=== PATIENT | male | born 1960 | race American Indian/Alaskan Native ===

== ENCOUNTER 2020-05-19 19:38 | Emergency (ER) | payer SELFPAY ==
[2020-05-19 20:26] LABS: Basophils % (Auto) 0.3 % (0.0-1.8); Eosinophils # (Auto) 0.1 K/mm3 (0.0-0.4); Eosinophils % (Auto) 2.8 % (0.0-4.3); Hematocrit 43.4 % (35.5-45.6); Hemoglobin 14.4 gm/dl (11.8-15.2); Lymphocytes # (Auto) 1.5 K/mm3 (1.2-5.4); Mean Corpuscular HGB Conc 33 % (32-34); Mean Corpuscular Volume 95 fl (84-94); Monocytes # (Auto) 0.3 K/mm3 (0.0-0.8); Monocytes % (Auto) 8.1 % (0.0-7.3); Platelet Count 221 K/mm3 (140-440); Red Blood Count 4.59 M/mm3 (3.65-5.03); Red Cell Distribution Width 13.8 % (13.2-15.2)
[2020-05-19 20:39] LABS: BUN/Creatinine Ratio 18; Blood Urea Nitrogen 24 mg/dL (9-20); Calcium 9.9 mg/dL (8.4-10.2); Hemolysis Index 27
[2020-05-19 21:37] LABS: Bilirubin,Urine NEG (Negative); Blood,Urine NEG (Negative); Color,Urine Colorless (Yellow); Mucus,Urine FEW /HPF; Protein,Urine <15 mg/dL mg/dL (Negative); Urobilinogen,Urine < 2.0 mg/dL (<2.0)
[2020-05-20] MEDS ORDERED: SODIUM CHLORIDE 0.9% 1000 ML 1,000 ML IV ONE ×2 (01:28)
--- NOTE | 2020-05-20 01:36 | Emergency Department Report ---
ED General Adult HPI - General Chief complaint: Hyperglycemia Stated complaint: BLOOD SUGAR HIGH Time Seen by Provider: 05/20/20 01:26 Source: patient, family Mode of arrival: Ambulatory Limitations: No Limitations - History of Present Illness Initial comments: cc: " I need my diabetes medicine." HPI: Mr. Sanchez is a 59-year-old male with history of diabetes mellitus, asthma, enlarged prostate, dyslipidemia who presents with muscle cramps polyuria for 2 months. He does not have a primary physician. He has not taken insulin in several years. He does not recall the name of his most recent diabetes medication. He denies any current discomfort. -: month(s) (2) Quality: aching Consistency: constant Improves with: none Worsens with: none - Related Data Previous Rx's Medication Instructions Recorded Last Taken Type AtorvaSTATin [Lipitor] 20 mg PO DAILY #30 tablet 06/09/16 Unknown Rx Insulin NPH/Regular [Novolin 70/30] 8 unit SQ BIDDIAB 30 Days ml 06/09/16 Unknown Rx Insulin Regular, Human [HumuLIN R] 1 units IV ACHS 30 Days units 06/09/16 Unknown Rx traMADoL [Ultram] 50 mg PO Q6HR PRN #20 tablet 06/26/16 Unknown Rx metFORMIN [Glucophage] 500 mg PO BID #60 tablet 05/20/20 Unknown Rx Allergies Allergy/AdvReac Type Severity Reaction Status Date / Time No Known Allergies Allergy Verified 06/26/16 09:02 ED Review of Systems ROS: Stated complaint: BLOOD SUGAR HIGH Other details as noted in HPI Comment: All other systems reviewed and negative Constitutional: denies: fever, malaise Respiratory: denies: cough, shortness of breath Cardiovascular: denies: chest pain Musculoskeletal: myalgia ED Past Medical Hx - Past Medical History Previous Medical History?: Yes Hx Diabetes: Yes (new onset) Hx Asthma: Yes Additional medical history: Constipation, Enlarged prostate. HIGH CHOLESTEROL - Surgical History Past Surgical History?: Yes Hx Appendectomy: Yes - Social History Smoking Status: Never Smoker Substance Use Type: None - Medications Home Medications: Home Medications Medication Instructions Recorded Confirmed Last Taken Type AtorvaSTATin [Lipitor] 20 mg PO DAILY #30 tablet 06/09/16 06/26/16 Unknown Rx Insulin NPH/Regular [Novolin 70/30] 8 unit SQ BIDDIAB 30 Days ml 06/09/16 06/26/16 Unknown Rx Insulin Regular, Human [HumuLIN R] 1 units IV ACHS 30 Days units 06/09/16 06/26/16 Unknown Rx traMADoL [Ultram] 50 mg PO Q6HR PRN #20 tablet 06/26/16 Unknown Rx metFORMIN [Glucophage] 500 mg PO BID #60 tablet 05/20/20 Unknown Rx ED Physical Exam - General Limitations: No Limitations General appearance: alert, in no apparent distress - Head Head exam: Present: atraumatic, normocephalic - Eye Eye exam: Present: normal appearance - ENT ENT exam: Present: mucous membranes moist - Neck Neck exam: Present: normal inspection, full ROM - Respiratory Respiratory exam: Present: normal lung sounds bilaterally. Absent: respiratory distress, wheezes, rales, stridor - Cardiovascular Cardiovascular Exam: Present: regular rate, normal rhythm, normal heart sounds. Absent: systolic murmur, diastolic murmur, rubs, gallop - GI/Abdominal GI/Abdominal exam: Present: soft, normal bowel sounds. Absent: distended, tenderness, guarding, rebound - Rectal Rectal exam: Present: deferred - Extremities Exam Extremities exam: Present: normal inspection - Neurological Exam Neurological exam: Present: alert, oriented X3 - Psychiatric Psychiatric exam: Present: normal affect, normal mood - Skin Skin exam: Present: warm, dry, intact, normal color. Absent: rash ED Course Vital Signs 05/19/20 19:48 Temperature 98.5 F Pulse Rate 94 H Respiratory 1 L Rate Blood Pressure 153/90 O2 Sat by Pulse 94 Oximetry ED Medical Decision Making - Lab Data Result diagrams: 05/19/20 20:08 05/19/20 20:08 - Medical Decision Making Acute hyperglycemia with polyuria and muscle cramps. Hyperglycemia due to diabetes mellitus which is not being managed in outpatient setting. Patient received IV fluid therapy to address hyperglycemia and volume contraction. I have prescribed metformin. I referred him to our outpatient medicine physician. After 2 L normal saline IV fluid therapy, repeat blood sugar 335. Patient given verbal and written education. Strongly encouraged to follow-up with our physician. Critical care attestation.: If time is entered above; I have spent that time in minutes in the direct care of this critically ill patient, excluding procedure time. ED Disposition Clinical Impression: Acute hyperglycemia, Diabetes mellitus Disposition: DC-01 TO HOME OR SELFCARE Is pt being admited?: No Does the pt Need Aspirin: No Condition: Stable Instructions: Diabetes Mellitus Type 2 in Adults (ED) Prescriptions: metFORMIN [Glucophage] 500 mg PO BID #60 tablet Referrals: VICTOR HUGO BELLE MD [Staff Physician] - 3-5 Days
[2020-05-20 03:59] VITALS: BP 147/82
== END 2020-05-20 03:00 | disposition home or self-care (01) ==
LOC: ED 19:38
DX: E11.65 Type 2 diabetes mellitus with hyperglycemia (principal); J45.909 Unspecified asthma, uncomplicated; E78.5 Hyperlipidemia, unspecified; E78.00 Pure hypercholesterolemia, unspecified; Z90.49 Acquired absence of other specified parts of digestive tract; Z79.899 Other long term (current) drug therapy
CPT/HCPCS: 36415; 80048; 81001; 82805; 82962; 85025; 96360; 99284; J7030